=== PATIENT | male | born 1950 | race Hispanic/Latino ===

== ENCOUNTER 2022-08-03 03:39 | Emergency (ER) | payer MEDICARE, OTHER ==
[2022-08-03] MEDS ORDERED: Morphine 2 MG/ML VIAL ONE (04:25)
[2022-08-03 05:00] LABS: #Basophils 0.1 thou/uL (0.0-0.2); #Eosinphils 0.2 thou/uL (0.0-0.7); #Lymphocytes 1.7 thou/uL (1.20-3.40); #Monocytes 0.6 thou/uL (0.11-0.59); #Neutrophils 4.3 thou/uL (1.40-6.50); %Basophils 1.8 % (0.0-1.0); %Eosinophils 2.6 % (0.0-10.0); %Lymphocytes 24.2 % (21.0-51.0); %Monocytes 8.8 % (0.0-10.0); %Neutrophils 62.6 % (42.0-75.0); ALT (SGPT) 22 U/L (8-55); AST (SGOT) 18 U/L (5-34); Albumin 3.5 g/dL (3.4-4.8); Alkaline Phosphatase 135 U/L (40-110); Anion Gap 14 mmol/L (10-20); BUN (Urea Nitrogen) 18 mg/dL (8.4-25.7); Bilirubin, Total 0.6 mg/dL (0.2-1.2); Calc. Creatinine Clearance 0 mL/min (70-130); Calcium 9.4 mg/dL (7.8-10.44); Carbon Dioxide 28 mmol/L (23-31); Chloride 98 mmol/L (98-107); Estimated GFR 85; Globulin 3.6 g/dL (2.4-3.5); Glucose 117 mg/dL (80-115); Hemoglobin 12.9 g/dL (14.0-18.0); Lipase 21 U/L (8-78); Mean Corpuscular HGB CONC 33.7 g/dL (32.0-36.0); Mean Corpuscular Hemoglobin 29.3 pg (27.0-31.0); Mean Platelet Volume 7.1 fL (7.4-10.4); Platelet Count 194 10x3/uL (130-400); Potassium 4.2 mmol/L (3.5-5.1); Protein, Total 7.1 g/dL (5.8-8.1); Red Blood Cell (RBC) Count 4.38 mill/uL (4.70-6.10); Sodium 136 mmol/L (136-145); White Blood Cell (WBC) Count 6.8 10x3/uL (4.8-10.8)
[2022-08-03 05:03] LABS: Bilirubin Negative (Negative); Blood, Urine Negative (Negative); Clarity Clear (Clear); Glucose, Urine (Dipstick) Negative (Negative); Ketone, Urine Negative (Negative); Leukocyte Negative (Negative); Nitrite Negative (Negative); Protein, Urine (Dipstick) Negative (Neg-Trace)
== END 2022-08-03 05:24 | disposition short-term general hospital (02) ==
LOC: EDBD → MADERS 03:39 → EDBD 03:39 → MADERS 05:24
DX: R10.11 Right upper quadrant pain (principal); G89.29 Other chronic pain
CPT/HCPCS: 80053; 81001; 83690; 85025; 99284; J2272

== ENCOUNTER 2022-10-21 13:31 | Emergency (ER) | payer OTHER, MEDICARE ==
[2022-10-21] MEDS ORDERED: Ketorolac Tromethamine 30 MG/ML VIAL ONE (14:36)
== END 2022-10-21 15:52 | disposition home or self-care (01) ==
LOC: EDBD 13:31 → MADERS 13:31
DX: M17.12 Unilateral primary osteoarthritis, left knee (principal); E03.9 Hypothyroidism, unspecified; I10 Essential (primary) hypertension; E11.40 Type 2 diabetes mellitus with diabetic neuropathy, unspecified; K21.9 Gastro-esophageal reflux disease without esophagitis; J44.9 Chronic obstructive pulmonary disease, unspecified; Z87.891 Personal history of nicotine dependence; Z79.899 Other long term (current) drug therapy; Z79.4 Long term (current) use of insulin; Z79.82 Long term (current) use of aspirin
CPT/HCPCS: 96372; J1885

== ENCOUNTER 2023-05-04 13:25 | Emergency (ER) | payer OTHER ==
[~2023-05-04 13:25] MED LIST: Iopamidol 370 76% 100 ML VIAL ONE; Nitroglycerin 0.4 MG TAB 1 EACH ONE
[2023-05-04] MEDS ORDERED: Ipratropium/Albuterol 3 ML NEB ONE ×3 (13:41→15:33)
[2023-05-04 13:59] LABS: #Basophils 0.1 thou/uL (0.0-0.2); #Eosinphils 0.1 thou/uL (0.0-0.7); #Lymphocytes 1.7 thou/uL (1.20-3.40); #Monocytes 0.6 thou/uL (0.11-0.59); #Neutrophils 3.8 thou/uL (1.40-6.50); %Basophils 1.5 % (0.0-1.0); %Eosinophils 1.9 % (0.0-10.0); %Lymphocytes 27.4 % (21.0-51.0); %Neutrophils 60.3 % (42.0-75.0); Hematocrit 36.6 % (42.0-52.0); Hemoglobin 11.7 g/dL (14.0-18.0); Mean Corpuscular HGB CONC 32.1 g/dL (32.0-36.0); Mean Corpuscular Hemoglobin 29.5 pg (27.0-31.0); Mean Platelet Volume 7.2 fL (7.4-10.4); Platelet Count 167 10x3/uL (130-400); Red Blood Cell (RBC) Count 3.97 mill/uL (4.70-6.10); White Blood Cell (WBC) Count 6.3 10x3/uL (4.8-10.8)
[2023-05-04] MEDS ORDERED: methylPREDNISolone Sod Succ/PF 125 MG/2 ML VIAL ONE (14:03)
[2023-05-04] MEDS ORDERED: Aspirin Chewable 81 MG TAB ONE (14:09)
[2023-05-04 14:13] LABS: ALT (SGPT) 18 U/L (8-55); AST (SGOT) 18 U/L (5-34); Albumin 3.2 g/dL (3.4-4.8); Alkaline Phosphatase 143 U/L (40-110); Anion Gap 15 mmol/L (10-20); BUN (Urea Nitrogen) 12 mg/dL (8.4-25.7); Base Excess-Venous 6.9 mmol/L (-2.0 to 3.0); Bicarbonate (HCO3v) 33.4 mmol/L (22.0-28.0); Bilirubin, Total 0.5 mg/dL (0.2-1.2); CO2 Tension (PvCO2) 54.2 mmHg (42.0-51.0); Calc. Creatinine Clearance 0 mL/min (70-130); Calcium 8.5 mg/dL (7.8-10.44); Calcium, Ionized 1.12 mmol/L (1.15-1.33); Carbon Dioxide 29 mmol/L (23-31); Chloride 95 mmol/L (98-107); Estimated GFR 91; Globulin 3.7 g/dL (2.4-3.5); Glucose 243 mg/dL (80-115); Hemoglobin - Calc 13.4 g/dL (14.0-18.0); Magnesium 1.8 mg/dL (1.6-2.6); Potassium 3.7 mmol/L (3.5-5.1); Protein, Total 6.9 g/dL (5.8-8.1); Sodium 135 mmol/L (136-145); Sodium 137 mmol/L (138-145); T. Carbon Dioxide 35.1 mmol/L (22.0-28.0); Troponin I Less than 0.010 ng/mL (< 0.028); vO2 Saturation-calc 99.3 % (60.0-85.0)
[2023-05-04] MEDS ORDERED: Nitroglycerin 0.4 MG TAB 1 EACH ONE (15:44)
[2023-05-04 16:05] LABS: SARS-CoV-2 NAA Rapid Test Not Detected (NotDetected)
[2023-05-04 17:02] LABS: Troponin I Less than 0.010 ng/mL (< 0.028)
== END 2023-05-04 18:20 | disposition short-term general hospital (02) ==
LOC: MADERS 13:25
DX: J44.1 Chronic obstructive pulmonary disease with (acute) exacerbation (principal); I10 Essential (primary) hypertension; E11.40 Type 2 diabetes mellitus with diabetic neuropathy, unspecified; E03.9 Hypothyroidism, unspecified; E66.9 Obesity, unspecified; K21.9 Gastro-esophageal reflux disease without esophagitis; M17.11 Unilateral primary osteoarthritis, right knee; Z20.822 Contact with and (suspected) exposure to COVID-19; Z87.891 Personal history of nicotine dependence; Z79.82 Long term (current) use of aspirin; Z79.4 Long term (current) use of insulin; Z79.899 Other long term (current) drug therapy
CPT/HCPCS: 71045; 71275; 80053; 82330; 82435; 82803; 83735; 83880; 84132; 84295; 84484 ×2; 85014; 85025; 85379; 93005; U0002; 96374; J2930; J7620; Q9967

== ENCOUNTER 2023-05-23 16:45 | Outpatient (CLI) | payer OTHER | END 2023-05-23 16:46 | disposition home or self-care (01) | LOC: MADRAD 16:45 | PROVIDERS: ATTEND Registered Nurse | DX: M25.562 Pain in left knee (principal); M17.12 Unilateral primary osteoarthritis, left knee ==

== ENCOUNTER 2024-01-29 16:02 | Outpatient (CLI) | payer OTHER | END 2024-01-29 16:03 | disposition home or self-care (01) | LOC: MADRAD 16:02 | PROVIDERS: ATTEND Registered Nurse | DX: M54.2 Cervicalgia (principal); R29.898 Other symptoms and signs involving the musculoskeletal system; M47.812 Spondylosis without myelopathy or radiculopathy, cervical region; M19.012 Primary osteoarthritis, left shoulder | CPT/HCPCS: 72040 ==

== ENCOUNTER 2024-02-21 11:38 | Emergency (ER) | payer OTHER ==
[2024-02-21 12:11] LABS: #Basophils 0.1 thou/uL (0.0-0.2); #Eosinphils 0.1 thou/uL (0.0-0.7); #Lymphocytes 1.2 thou/uL (1.20-3.40); #Monocytes 1.1 thou/uL (0.11-0.59); %Basophils 0.8 % (0.0-1.0); %Eosinophils 1.5 % (0.0-10.0); %Lymphocytes 14.3 % (21.0-51.0); %Monocytes 13.1 % (0.0-10.0); %Neutrophils 70.3 % (42.0-75.0); Hematocrit 37.8 % (42.0-52.0); Hemoglobin 11.4 g/dL (14.0-18.0); Mean Corpuscular HGB CONC 30.2 g/dL (32.0-36.0); Mean Corpuscular Hemoglobin 26.8 pg (27.0-31.0); Mean Corpuscular Volume 88.9 fl (78.0-98.0); Platelet Count 166 10x3/uL (130-400); RBC Distribution Width 14.5 % (11.5-14.5); Red Blood Cell (RBC) Count 4.25 mill/uL (4.70-6.10); White Blood Cell (WBC) Count 8.5 10x3/uL (4.8-10.8)
[2024-02-21 12:26] LABS: Anion Gap 14 mmol/L (10-20); BUN (Urea Nitrogen) 20 mg/dL (8.4-25.7); Calc. Creatinine Clearance 0 mL/min (70-130); Carbon Dioxide 27 mmol/L (23-31); Chloride 99 mmol/L (98-107); Potassium 5.2 mmol/L (3.5-5.1); Sodium 135 mmol/L (136-145)
[2024-02-21 12:27] LABS: ALT (SGPT) 24 U/L (8-55); AST (SGOT) 19 U/L (5-34); Albumin 3.1 g/dL (3.4-4.8); Alkaline Phosphatase 104 U/L (40-110); Bilirubin, Total 0.9 mg/dL (0.2-1.2); Calcium 8.9 mg/dL (7.8-10.44); Estimated GFR 49; Globulin 3.3 g/dL (2.4-3.5); Glucose 118 mg/dL (83-110); Magnesium 2.1 mg/dL (1.6-2.6); Protein, Total 6.4 g/dL (5.8-8.1)
[2024-02-21 12:30] LABS: Troponin I Less than 0.010 ng/mL (< 0.028)
[2024-02-21] MEDS ORDERED: Sodium Chloride 0.9% 1,000 ML ONE (13:05)
== END 2024-02-21 14:45 | disposition home or self-care (01) ==
LOC: MADERS 11:38
DX: E86.0 Dehydration (principal); R42 Dizziness and giddiness; E11.9 Type 2 diabetes mellitus without complications; E03.9 Hypothyroidism, unspecified; K21.9 Gastro-esophageal reflux disease without esophagitis; I10 Essential (primary) hypertension; Z79.899 Other long term (current) drug therapy; Z79.4 Long term (current) use of insulin; Z87.891 Personal history of nicotine dependence; Z79.82 Long term (current) use of aspirin
CPT/HCPCS: 71045; 80053; 83735; 83880; 84484; 85025; 93005; 94760; 96360; J7030

== ENCOUNTER 2024-04-05 12:44 | Emergency (ER) | payer OTHER ==
[~2024-04-05 12:44] MED LIST changes: -Nitroglycerin 0.4 MG TAB 1 EACH ONE
[2024-04-05] MEDS ORDERED: Ondansetron PF 4 MG/2 ML Vial ONE (13:02)
[2024-04-05 13:34] LABS: ALT (SGPT) 15 U/L (8-55); AST (SGOT) 10 U/L (5-34); Alkaline Phosphatase 105 U/L (40-110); Anion Gap 16 mmol/L (10-20); BUN (Urea Nitrogen) 29 mg/dL (8.4-25.7); Calc. Creatinine Clearance 0 mL/min (70-130); Calcium 8.4 mg/dL (7.8-10.44); Carbon Dioxide 22 mmol/L (23-31); Chloride 103 mmol/L (98-107); Estimated GFR 72; Globulin 2.8 g/dL (2.4-3.5); Glucose 167 mg/dL (83-110); Lipase 48 U/L (8-78); Potassium 4.8 mmol/L (3.5-5.1); Protein, Total 5.8 g/dL (5.8-8.1); Sodium 136 mmol/L (136-145); Troponin I Less than 0.010 ng/mL (< 0.028)
[2024-04-05 13:42] LABS: Hematocrit 35.2 % (42.0-52.0); Hemoglobin 11.5 g/dL (14.0-18.0); MDiff Complete? YES; Mean Corpuscular HGB CONC 32.7 g/dL (32.0-36.0); Mean Corpuscular Hemoglobin 29.3 pg (27.0-31.0); Mean Corpuscular Volume 89.7 fl (78.0-98.0); Mean Platelet Volume 7.6 fL (7.4-10.4); Platelet Count 196 10x3/uL (130-400); Red Blood Cell (RBC) Count 3.92 mill/uL (4.70-6.10); White Blood Cell (WBC) Count 7.3 10x3/uL (4.8-10.8)
[2024-04-05 13:43] LABS: Band 21 % (5-11); Hypochromia SLIGHT = 6-15 cells (100X) (0-5/hpf); Lymphocytes 8 % (21-51); Monocytes 4 % (0-10); Neutrophil 67 % (42-75); Platelet Adequacy Comment Appears Adequate
[2024-04-05 14:50] LABS: Bilirubin Negative (Negative); Blood, Urine Negative (Negative); Glucose, Urine (Dipstick) Negative (Negative); Ketone, Urine Trace mg/dL (Negative); Leukocyte Trace (Negative); Nitrite Negative (Negative); Protein, Urine (Dipstick) Negative (Neg-Trace); Specific Gravity, Urine 1.015 (1.005-1.030); pH, Urine 5.5 (5.0-9.0)
[2024-04-05 14:55] LABS: Clarity Hazy (Clear)
[2024-04-05 14:56] LABS: Bacteria/HPF 1+ HPF (None Seen); CAUTI Indications for Culture Pelvic or flank pain; RBC/HPF 0-3 HPF (0-3); WBC/HPF 0-3 HPF (0-3)
[2024-04-05 14:57] LABS: Urine Culture Reflex No No
== END 2024-04-05 16:53 | disposition home or self-care (01) ==
LOC: MADERS 12:44
DX: R19.7 Diarrhea, unspecified (principal); E86.0 Dehydration; E11.9 Type 2 diabetes mellitus without complications; E03.9 Hypothyroidism, unspecified; K21.9 Gastro-esophageal reflux disease without esophagitis; J44.9 Chronic obstructive pulmonary disease, unspecified; Z87.891 Personal history of nicotine dependence; Z79.899 Other long term (current) drug therapy; Z79.4 Long term (current) use of insulin; Z79.82 Long term (current) use of aspirin
CPT/HCPCS: 74177; 80053; 81001; 83690; 84484; 85025; 93005; 96361; 96374; J2405; Q9967

== ENCOUNTER 2024-04-19 00:49 | Emergency (ER) | payer OTHER ==
[2024-04-19 01:30] LABS: Bilirubin Negative (Negative); Blood, Urine Negative (Negative); Clarity Clear (Clear); Glucose, Urine (Dipstick) Negative (Negative); Ketone, Urine Negative (Negative); Leukocyte Negative (Negative); Nitrite Negative (Negative); Protein, Urine (Dipstick) Negative (Neg-Trace); Specific Gravity, Urine 1.015 (1.005-1.030)
[2024-04-19 01:37] LABS: Bacteria/HPF Rare-Few HPF (None Seen); CAUTI Indications for Culture Pelvic or flank pain; RBC/HPF 0-3 HPF (0-3); Squamous Epithelial 0-3 HPF (0-3); WBC/HPF 0-3 HPF (0-3)
[2024-04-19 01:38] LABS: Urine Culture Reflex No No
[2024-04-19 01:41] LABS: Band 3 % (5-11); Eosinophils 2 % (0-10); Hematocrit 33.2 % (42.0-52.0); Hemoglobin 10.8 g/dL (14.0-18.0); Lymphocytes 14 % (21-51); MDiff Complete? YES; Mean Corpuscular HGB CONC 32.5 g/dL (32.0-36.0); Mean Corpuscular Hemoglobin 29.6 pg (27.0-31.0); Mean Corpuscular Volume 91.2 fl (78.0-98.0); Mean Platelet Volume 6.6 fL (7.4-10.4); Monocytes 9 % (0-10); Neutrophil 72 % (42-75); Platelet Count 171 10x3/uL (130-400); RBC Distribution Width 15.2 % (11.5-14.5); Red Blood Cell (RBC) Count 3.64 mill/uL (4.70-6.10); White Blood Cell (WBC) Count 6.5 10x3/uL (4.8-10.8)
[2024-04-19 01:47] LABS: ALT (SGPT) 34 U/L (8-55); AST (SGOT) 74 U/L (5-34); Albumin 3.1 g/dL (3.4-4.8); Alkaline Phosphatase 108 U/L (40-110); Anion Gap 15 mmol/L (10-20); BUN (Urea Nitrogen) 12 mg/dL (8.4-25.7); Bilirubin, Total 0.9 mg/dL (0.2-1.2); Calc. Creatinine Clearance 0 mL/min (70-130); Calcium 8.8 mg/dL (7.8-10.44); Carbon Dioxide 23 mmol/L (23-31); Chloride 101 mmol/L (98-107); Estimated GFR 85; Globulin 3.2 g/dL (2.4-3.5); Glucose 151 mg/dL (83-110); Potassium 4.7 mmol/L (3.5-5.1); Protein, Total 6.3 g/dL (5.8-8.1); Sodium 134 mmol/L (136-145)
[2024-04-19 01:50] LABS: Troponin I Less than 0.010 ng/mL (< 0.028)
== END 2024-04-19 04:25 | disposition short-term general hospital (02) ==
LOC: MADERS 00:49
DX: E66.01 Morbid (severe) obesity due to excess calories (principal); R53.1 Weakness; E11.9 Type 2 diabetes mellitus without complications; I10 Essential (primary) hypertension; Z79.899 Other long term (current) drug therapy; Z79.4 Long term (current) use of insulin; Z79.82 Long term (current) use of aspirin; Z87.891 Personal history of nicotine dependence
CPT/HCPCS: 71045; 80053; 81001; 83880; 84443; 84484; 85025

== ENCOUNTER 2024-04-23 14:28 | Inpatient (IN) | payer OTHER ==
[2024-04-23 15:39] VITALS: BMI 52.9
[2024-04-23] MEDS ORDERED: Glucagon 1 MG/ML KIT IM PRN (18:08)
[2024-04-23] MEDS ORDERED: Dextrose 50% Abboject 50 ML SYRINGE SLOW IVP PRN (18:08)
[2024-04-23] MEDS ORDERED: Bisacodyl 10 MG SUPP PR PRN (18:11)
[2024-04-23] MEDS ORDERED: Albuterol 200 PUFF (6.7GM INHALER) INH PRN ×2 (18:11)
[2024-04-23] MEDS: Senokot S 8.6-50 MG TAB PO SCH (20:44)
[2024-04-23] MEDS: Pantoprazole DR 40 MG TAB PO SCH (20:44)
[2024-04-23] MEDS: Ranolazine ER 500 MG TAB PO SCH (20:44)
[2024-04-23] MEDS: Aspirin 81 mg Enteric Coated Tablet PO SCH (20:44)
[2024-04-23] MEDS: Gabapentin 400 MG CAP PO SCH (20:44)
[2024-04-23] MEDS: Nystatin Powder 15 GM BOT TOP SCH (20:44)
[2024-04-23] MEDS: Atorvastatin Calcium 40 MG TAB PO SCH (20:45)
[2024-04-23] MEDS: Furosemide 20 MG TAB PO SCH (20:45)
[2024-04-23] MEDS: Dicyclomine 10 MG CAP PO SCH (20:45)
[2024-04-23] MEDS: Lantus 1000 UNITS/10 ML VIAL SC SCH (20:45)
[2024-04-23] MEDS: Mometasone 100 MCG/Formoterol 5 MCG 60 PUFF AEROSOL INH SCH (20:48)
[2024-04-23] MEDS: Ipratropium/Albuterol 3 ML NEB NEB SCH (22:59)
[2024-04-24] MEDS: Levothyroxine Sodium 100 MCG TAB PO SCH (06:25)
[2024-04-24] MEDS: Enoxaparin 40 MG (0.4 mL) SYRINGE SC SCH (08:57)
[2024-04-24] MEDS: Lisinopril 5 MG TAB PO SCH (08:57)
[2024-04-24] MEDS: Polyethylene Glycol 3350 17 GM Packet PO SCH (08:58)
[2024-04-24] MEDS: Spironolactone 25 MG TAB PO SCH (08:58)
[2024-04-24] MEDS: Isosorbide Mononitrate 30 MG ER.TAB PO SCH (08:58)
[2024-04-24] MEDS: Furosemide 20 MG TAB PO SCH (08:59)
[2024-04-24] MEDS: Clopidogrel Bisulfate 75 MG TAB PO SCH (08:59)
[2024-04-24] MEDS: Acetaminophen 325 MG TAB PO PRN (09:01)
[2024-04-24] MEDS: (Linaclotide [Linzess] 145 MCG Capsule) PO SCH (09:02)
[2024-04-24] MEDS: Gabapentin 300 MG CAP PO SCH (12:17)
[2024-04-24] MEDS: HumaLOG 300 UNITS/3 ML VIAL SC PRN (12:18)
[2024-04-24] MEDS: Aspirin 81 mg Enteric Coated Tablet ONE (17:01)
[2024-04-24] MEDS: Lidocaine 10 ML, Aluminum & Magnesium Hydroxide 30 ML SSW SCH (17:18)
[2024-04-24 17:26] LABS: Anion Gap 17 mmol/L (10-20); BUN (Urea Nitrogen) 27 mg/dL (8.4-25.7); Calc. Creatinine Clearance 108 mL/min (70-130); Calcium 9.5 mg/dL (7.8-10.44); Carbon Dioxide 27 mmol/L (23-31); Chloride 94 mmol/L (98-107); Estimated GFR 52; Glucose 157 mg/dL (83-110); Potassium 4.4 mmol/L (3.5-5.1); Sodium 134 mmol/L (136-145)
[2024-04-24 17:29] LABS: Troponin I Less than 0.010 ng/mL (< 0.028)
[2024-04-24 17:35] LABS: Hematocrit 33.5 % (42.0-52.0); Mean Corpuscular Hemoglobin 29.9 pg (27.0-31.0); Mean Corpuscular Volume 90.8 fl (78.0-98.0); Mean Platelet Volume 7.2 fL (7.4-10.4); Platelet Count 189 10x3/uL (130-400); RBC Distribution Width 14.8 % (11.5-14.5); Red Blood Cell (RBC) Count 3.68 mill/uL (4.70-6.10); White Blood Cell (WBC) Count 6.5 10x3/uL (4.8-10.8)
[2024-04-24 17:45] LABS: Band 1 % (5-11); Eosinophils 5 % (0-10); Lymphocytes 10 % (21-51); MDiff Complete? YES; Manual Diff?? YES; Monocytes 14 % (0-10); Neutrophil 61 % (42-75); Platelet Adequacy Comment Appears Adequate; Reactive Lymphocytes 9 % (0-10)
[2024-04-25] MEDS: ESOMEPRAZOLE 40MG PO SCH (07:46)
[2024-04-25 07:58] VITALS: BMI 52.9
[2024-04-25] MEDS: TIRZEPATIDE 5 MG/0.5 ML SC SCH (08:20)
[2024-04-26] MEDS: Docusate Sodium 100 MG/10 ML UDCUP PO PRN (12:28)
[2024-04-28] MEDS: HYDROcodone/Acetaminophen 10/325 mg Tablet PO PRN (10:11)
[2024-04-29] MEDS ORDERED: TIRZEPATIDE 5 MG/0.5 ML SC SCH (18:30)
[2024-04-30] MEDS: Nystatin 500,000 UNITS/5 ML UDCUP SSW SCH ×2 (09:53→12:15)
[2024-05-02 05:26] LABS: Anion Gap 15 mmol/L (10-20); BUN (Urea Nitrogen) 29 mg/dL (8.4-25.7); Calc. Creatinine Clearance 131 mL/min (70-130); Calcium 9.2 mg/dL (7.8-10.44); Carbon Dioxide 24 mmol/L (23-31); Chloride 99 mmol/L (98-107); Estimated GFR 65; Glucose 142 mg/dL (83-110); Potassium 5.2 mmol/L (3.5-5.1); Sodium 133 mmol/L (136-145)
[2024-05-02] MEDS ORDERED: Ipratropium/Albuterol 3 ML NEB NEB SCH (15:00)
[2024-05-02] MEDS: Ipratropium/Albuterol 3 ML NEB NEB SCH (20:52)
[2024-05-03] MEDS: Ondansetron ODT 4 MG TAB PO PRN (02:45)
[2024-05-03] MEDS: Furosemide 40 MG TAB PO SCH (06:21)
[2024-05-03] MEDS: Furosemide 20 MG TAB PO SCH (12:07)
[2024-05-06 05:21] LABS: Anion Gap 12 mmol/L (10-20); BUN (Urea Nitrogen) 26 mg/dL (8.4-25.7); Calc. Creatinine Clearance 130 mL/min (70-130); Calcium 9.1 mg/dL (7.8-10.44); Carbon Dioxide 27 mmol/L (23-31); Chloride 99 mmol/L (98-107); Estimated GFR 65; Glucose 147 mg/dL (83-110); Potassium 4.4 mmol/L (3.5-5.1); Sodium 134 mmol/L (136-145)
[2024-05-06] MEDS: Phenazopyridine HCl 95 MG TAB PO SCH ×2 (08:21→14:32)
[2024-05-07] MEDS: Enoxaparin 40 MG (0.4 mL) SYRINGE SC SCH (09:10)
[2024-05-08] MEDS: Diclofenac 1% 100 GM Topical GEL TP PRN (20:22)
[2024-05-11] MEDS ORDERED: Cyanocobalamin (Vitamin B-12) 1,000 MCG TAB PO SCH (09:00)
[2024-05-12 07:04] VITALS: TEMP 98.7
[2024-05-12 08:30] VITALS: BP 124/68
== END 2024-05-12 11:00 | DRG 948 ==
LOC: MADMS 14:57
PROVIDERS: ADMIT Family Medicine; ATTEND Family Medicine
DX: R53.81 Other malaise (principal); J96.11 Chronic respiratory failure with hypoxia; Z68.43 Body mass index [BMI] 50.0-59.9, adult; E78.5 Hyperlipidemia, unspecified; G47.33 Obstructive sleep apnea (adult) (pediatric); E03.9 Hypothyroidism, unspecified; B37.2 Candidiasis of skin and nail; J44.9 Chronic obstructive pulmonary disease, unspecified; E11.9 Type 2 diabetes mellitus without complications; E66.01 Morbid (severe) obesity due to excess calories; I10 Essential (primary) hypertension; Z88.0 Allergy status to penicillin; Z88.2 Allergy status to sulfonamides; Z79.899 Other long term (current) drug therapy; Z98.890 Other specified postprocedural states; Z79.82 Long term (current) use of aspirin; Z79.4 Long term (current) use of insulin
CPT/HCPCS: 36415; 36416; 71045; 72100; 80048; 83880; 84484; 85025; 85379; 94640; 94664; J1650; J1815; J7620; Q0162

== ENCOUNTER 2024-05-14 07:00 | Emergency (ER) | payer OTHER ==
[2024-05-14] MEDS ORDERED: Ondansetron ODT 4 MG TAB ONE (07:34)
[2024-05-14] MEDS ORDERED: Acetaminophen 500 MG TAB ONE (07:35)
[2024-05-14] MEDS ORDERED: Famotidine/PF 20 mg/2ml Vial ONE (07:35)
[2024-05-14 07:46] LABS: Hematocrit 32.2 % (42.0-52.0); Hemoglobin 10.4 g/dL (14.0-18.0); Mean Corpuscular HGB CONC 32.2 g/dL (32.0-36.0); Mean Corpuscular Hemoglobin 29.8 pg (27.0-31.0); Mean Corpuscular Volume 92.5 fl (78.0-98.0); Platelet Count 171 10x3/uL (130-400); RBC Distribution Width 14.5 % (11.5-14.5); Red Blood Cell (RBC) Count 3.48 mill/uL (4.70-6.10); White Blood Cell (WBC) Count 5.3 10x3/uL (4.8-10.8)
[2024-05-14 07:47] LABS: Mean Platelet Volume 7.9 fL (7.4-10.4)
[2024-05-14 07:48] LABS: ALT (SGPT) 34 U/L (8-55); AST (SGOT) 40 U/L (5-34); Albumin 3.2 g/dL (3.4-4.8); Alkaline Phosphatase 107 U/L (40-110); Anion Gap 14 mmol/L (10-20); BUN (Urea Nitrogen) 34 mg/dL (8.4-25.7); Bilirubin, Total 0.7 mg/dL (0.2-1.2); Calc. Creatinine Clearance 0 mL/min (70-130); Calcium 9.2 mg/dL (7.8-10.44); Carbon Dioxide 27 mmol/L (23-31); Chloride 100 mmol/L (98-107); Estimated GFR 63; Globulin 3.1 g/dL (2.4-3.5); Glucose 143 mg/dL (83-110); Lipase 20 U/L (8-78); Potassium 4.8 mmol/L (3.5-5.1); Protein, Total 6.3 g/dL (5.8-8.1); Sodium 136 mmol/L (136-145); Troponin I 0.022 ng/mL (< 0.028)
[2024-05-14 07:50] LABS: Manual Diff?? YES
[2024-05-14 07:51] LABS: Anisocytosis SLIGHT = 6-15 cells (100X) (0-5/hpf); Band 2 % (5-11); Eosinophils 2 % (0-10); Lymphocytes 22 % (21-51); MDiff Complete? YES; Monocytes 6 % (0-10); Neutrophil 68 % (42-75); Platelet Adequacy Comment Appears Adequate
[2024-05-14 08:12] LABS: Bilirubin Negative (Negative); Blood, Urine Negative (Negative); Clarity Clear (Clear); Glucose, Urine (Dipstick) Negative (Negative); Ketone, Urine Negative (Negative); Leukocyte Negative (Negative); Nitrite Negative (Negative); Protein, Urine (Dipstick) Negative (Neg-Trace); Specific Gravity, Urine 1.015 (1.005-1.030); Urobilinogen 0.2 mg/dL (Less than 2); pH, Urine 6.5 (5.0-9.0)
[2024-05-14 08:13] LABS: Bacteria/HPF Rare-Few HPF (None Seen); CAUTI Indications for Culture Pelvic or flank pain; RBC/HPF 0-3 HPF (0-3); Squamous Epithelial 0-3 HPF (0-3); WBC/HPF 0-3 HPF (0-3)
[2024-05-14 08:14] LABS: Urine Culture Reflex No No
[2024-05-14] MEDS ORDERED: Iopamidol 370 76% 100 ML VIAL ONE (09:00)
== END 2024-05-14 14:15 | disposition short-term general hospital (02) ==
LOC: MADERS 07:00
DX: R07.2 Precordial pain (principal); E11.40 Type 2 diabetes mellitus with diabetic neuropathy, unspecified; E03.9 Hypothyroidism, unspecified; I11.0 Hypertensive heart disease with heart failure; I50.9 Heart failure, unspecified; K21.9 Gastro-esophageal reflux disease without esophagitis; J44.9 Chronic obstructive pulmonary disease, unspecified; E66.9 Obesity, unspecified; Z87.891 Personal history of nicotine dependence; Z79.82 Long term (current) use of aspirin; Z79.899 Other long term (current) drug therapy; Z79.4 Long term (current) use of insulin
CPT/HCPCS: 71275; 80053; 81001; 83605; 83690; 83880; 84484; 85025; 93005; 94760; 96374; 99285; J3490; Q0162; Q9967

== ENCOUNTER 2024-08-23 04:01 | Emergency (ER) | payer OTHER, MEDICAID ==
[2024-08-23] MEDS ORDERED: Acetaminophen 500 MG TAB ONE (04:27)
[2024-08-23] MEDS ORDERED: Pantoprazole 40 MG VIAL ONE (04:31)
[2024-08-23 04:36] LABS: MDiff Complete? YES
[2024-08-23 04:37] LABS: Band 2 % (5-11); Eosinophils 2 % (0-10); Hematocrit 34.4 % (42.0-52.0); Hemoglobin 11.2 g/dL (14.0-18.0); Lymphocytes 17 % (21-51); Mean Corpuscular HGB CONC 32.6 g/dL (32.0-36.0); Mean Corpuscular Hemoglobin 29.9 pg (27.0-31.0); Mean Corpuscular Volume 91.9 fl (78.0-98.0); Monocytes 9 % (0-10); Neutrophil 70 % (42-75); Platelet Count 213 10x3/uL (130-400); RBC Distribution Width 13.8 % (11.5-14.5); Red Blood Cell (RBC) Count 3.75 mill/uL (4.70-6.10); White Blood Cell (WBC) Count 7.1 10x3/uL (4.8-10.8)
[2024-08-23 04:44] LABS: ALT (SGPT) 17 U/L (Less than 45); AST (SGOT) 19 U/L (11-34); Alkaline Phosphatase 117 U/L (40-110); Anion Gap 16 mmol/L (10-20); BUN (Urea Nitrogen) 15 mg/dL (8.4-25.7); Bilirubin, Total 0.8 mg/dL (0.3-1.2); Calc. Creatinine Clearance 0 mL/min (70-130); Calcium 9.3 mg/dL (7.8-10.44); Carbon Dioxide 26 mmol/L (23-31); Chloride 98 mmol/L (98-107); Estimated GFR 82; Globulin 3.6 g/dL (2.4-3.5); Glucose 140 mg/dL (83-110); Potassium 4.4 mmol/L (3.5-5.1); Protein, Total 6.6 g/dL (5.8-8.1); Sodium 136 mmol/L (136-145); Troponin I Less than 0.010 ng/mL (< 0.028)
[2024-08-23] MEDS ORDERED: Gabapentin 100 MG CAP ONE (04:48)
[2024-08-23] MEDS ORDERED: Iopamidol 370 76% 100 ML VIAL ONE (09:00)
== END 2024-08-23 10:00 | disposition short-term general hospital (02) ==
LOC: MADERS 04:01
DX: I11.0 Hypertensive heart disease with heart failure (principal); I50.9 Heart failure, unspecified; E78.00 Pure hypercholesterolemia, unspecified; E66.01 Morbid (severe) obesity due to excess calories; I25.10 Atherosclerotic heart disease of native coronary artery without angina pectoris; J44.9 Chronic obstructive pulmonary disease, unspecified; E11.40 Type 2 diabetes mellitus with diabetic neuropathy, unspecified; Z79.4 Long term (current) use of insulin; E03.9 Hypothyroidism, unspecified; K21.9 Gastro-esophageal reflux disease without esophagitis; Z79.82 Long term (current) use of aspirin; Z87.891 Personal history of nicotine dependence; Z79.899 Other long term (current) drug therapy
CPT/HCPCS: 71045; 71275; 80053; 83605; 83880; 84484; 85025; 93005; 96374; 99285; J2470; 36415; Q9967

== ENCOUNTER 2025-02-27 14:31 | Emergency (ER) | payer OTHER, MEDICAID ==
[2025-02-27 15:35] LABS: #Basophils 0.0 thou/uL (0.0-0.2); #Eosinophils 0.0 thou/uL (0.0-0.7); #Lymphocytes 0.4 thou/uL (1.20-3.40); #Monocytes 0.3 thou/uL (0.11-0.59); #Neutrophils 5.5 thou/uL (1.40-6.50); %Basophils 0.3 % (0.0-1.0); %Eosinophils 0.1 % (0.0-10.0); %Lymphocytes 6.9 % (21.0-51.0); %Monocytes 4.3 % (0.0-10.0); %Neutrophils 88.5 % (42.0-75.0); Hematocrit 32.6 % (42.0-52.0); Hemoglobin 10.7 g/dL (14.0-18.0); Mean Corpuscular Hemoglobin 31.1 pg (27.0-31.0); Mean Corpuscular Volume 94.9 fl (78.0-98.0); Platelet Count 169 10x3/uL (130-400); Red Blood Cell (RBC) Count 3.43 mill/uL (4.70-6.10); White Blood Cell (WBC) Count 6.2 10x3/uL (4.8-10.8)
[2025-02-27 15:50] LABS: ALT (SGPT) 10 U/L (Less than 45); AST (SGOT) 14 U/L (11-34); Albumin 3.3 g/dL (3.1-4.5); Alkaline Phosphatase 74 U/L (40-110); Anion Gap 17 mmol/L (10-20); BUN (Urea Nitrogen) 28 mg/dL (8.4-25.7); Bilirubin, Total 0.6 mg/dL (0.3-1.2); Calc. Creatinine Clearance 0 mL/min (70-130); Calcium 8.9 mg/dL (7.8-10.44); Carbon Dioxide 31 mmol/L (23-31); Chloride 89 mmol/L (98-107); Globulin 3.4 g/dL (2.4-3.5); Glucose 169 mg/dL (83-110); Magnesium 1.9 mg/dL (1.6-2.6); Potassium 5.5 mmol/L (3.5-5.1); Sodium 131 mmol/L (136-145)
[2025-02-27 15:53] LABS: Bicarbonate (HCO3v) 39.1 mmol/L (22.0-28.0); CO2 Tension (PvCO2) 80.3 mmHg (42.0-51.0); Calcium, Ionized 1.24 mmol/L (1.15-1.33); Chloride 89 mmol/L (98-107); Hemoglobin - Calc 11.4 g/dL (14.0-18.0); Potassium 5.4 mmol/L (3.5-5.1); Sodium 131 mmol/L (138-145); T. Carbon Dioxide 41.5 mmol/L (22.0-28.0); vO2 Saturation-calc 98.1 % (60.0-85.0)
[2025-02-27 18:40] LABS: Glucose, Urine (Dipstick) Negative (Negative); Leukocyte Negative (Negative); Protein, Urine (Dipstick) Negative (Neg-Trace); Specific Gravity, Urine 1.020 (1.005-1.030)
[2025-02-27 18:47] LABS: Bacteria/HPF Rare-Few HPF (None Seen); CAUTI Indications for Culture Alt mental st,lethar; RBC/HPF 0-3 HPF (0-3); WBC/HPF None Seen HPF (0-3)
[2025-02-27 18:48] LABS: Urine Culture Reflex No No
[2025-02-27 19:29] LABS: Anion Gap 16 mmol/L (10-20); BUN (Urea Nitrogen) 26 mg/dL (8.4-25.7); Calc. Creatinine Clearance 0 mL/min (70-130); Calcium 8.8 mg/dL (7.8-10.44); Carbon Dioxide 31 mmol/L (23-31); Chloride 91 mmol/L (98-107); Glucose 140 mg/dL (83-110); Potassium 5.2 mmol/L (3.5-5.1); Sodium 133 mmol/L (136-145)
== END 2025-02-27 22:56 ==
LOC: MADERS 14:31
DX: R41.0 Disorientation, unspecified (principal); J96.11 Chronic respiratory failure with hypoxia; E78.5 Hyperlipidemia, unspecified; E66.01 Morbid (severe) obesity due to excess calories; I10 Essential (primary) hypertension; I25.10 Atherosclerotic heart disease of native coronary artery without angina pectoris; E11.40 Type 2 diabetes mellitus with diabetic neuropathy, unspecified; J44.9 Chronic obstructive pulmonary disease, unspecified; E03.9 Hypothyroidism, unspecified; Z87.891 Personal history of nicotine dependence; Z79.82 Long term (current) use of aspirin; Z79.899 Other long term (current) drug therapy; Z79.890 Hormone replacement therapy; Z79.51 Long term (current) use of inhaled steroids; Z79.4 Long term (current) use of insulin
CPT/HCPCS: 70450; 71045; 80048; 80053; 81001; 82330; 82435; 82803; 83735; 84132; 84295; 85014; 85025; 93005; J7030; J7050; 36415; 51701

== ENCOUNTER 2025-05-13 12:33 | Outpatient (CLI) | payer MEDICARE, OTHER | END 2025-05-13 12:34 | disposition home or self-care (01) | LOC: MADRAD 12:33 | PROVIDERS: ATTEND Internal Medicine | DX: K59.00 Constipation, unspecified (principal); R19.7 Diarrhea, unspecified; R14.0 Abdominal distension (gaseous) | CPT/HCPCS: 74018 ==